=== PATIENT | male | born 1945 | race Caucasian/White ===

== ENCOUNTER 2019-02-23 06:10 | Inpatient (IN) | payer OTHER ==
[~2019-02-23] VITALS: Ht 170.2 cm; Wt 78.0 kg
[~2019-02-23 06:10] MED LIST: CRESTOR20 MG PO; REQUIP 1 MG TABL1 M1 PO; [UNRECOGNIZED DRUG - OTHER] PO
[2019-02-23 06:18] VITALS: BP 147/66
[2019-02-23 06:34] LABS: ABSOLUTE BASOPHILS 0.1 thou/uL (0.0-0.2); ABSOLUTE LYMPHOCYTES 1.4 thou/uL (0.8-5.3); ABSOLUTE MONOCYTES 0.8 thou/uL (0.0-1.2); ABSOLUTE NEUTROPHILS 6.2 thou/uL (1.6-8.1); BASOPHILS 0.7 %; EOSINOPHILS 0.4 %; LYMPHOCYTES 16.6 %; MCH 32.2 pg (26.0-34.0); MCHC 34.2 g/dL (28.0-37.0); MCV 94.3 fL (80.0-100.0); MONOCYTES 9.1 %; MPV 6.9 fl. (7.2-11.1); NUCLEATED RBCS 0 /100WBC; PLATELET COUNT* 302 thou/uL (150-400); POLYS 73.2 %; RBC 4.67 mil/uL (4.50-6.00); RDW-CV 12.4 % (10.5-14.5); WBC 8.5 thou/uL (4.0-11.0)
[2019-02-23 06:41] LABS: CALCIUM 9.6 mg/dL (8.5-10.1); CREATININE 1.2 mg/dL (0.6-1.3); POTASSIUM 4.9 mmol/L (3.5-5.1)
[2019-02-23 06:52] LABS: ALBUMIN 3.5 g/dL (3.4-5.0); TOTAL BILIRUBIN 0.9 mg/dL (<0.1-1.0); TOTAL PROTEIN 8.3 g/dL (6.4-8.2)
[2019-02-23 07:00] LABS: INFLUENZA A ANTIGEN Negative (Negative); INFLUENZA B ANTIGEN Negative (Negative)
[2019-02-23 07:09] LABS: APTT 25.7 Seconds (25.0-31.3); PROTIME 10.7 Seconds (9.20-11.50)
[2019-02-23 11:52] LABS: URINE BILIRUBIN NEGATIVE (Negative); URINE BLOOD 1+ (Negative); URINE CLARITY CLEAR; URINE COLOR YELLOW; URINE GLUCOSE-RANDOM NEGATIVE (Negative); URINE KETONES TRACE (Negative); URINE LEUKOCYTES-REFLEX NEGATIVE (Negative); URINE NITRITE-REFLEX NEGATIVE (Negative); URINE PROTEIN NEGATIVE (Negative); URINE SPECIFIC GRAVITY 1.025 (1.005-1.030); URINE UROBILINOGEN 0.2 E.U./dl (0.2-1.0)
[2019-02-23 12:01] LABS: BACTERIA-REFLEX 1-9 Few /HPF (None Seen); CASTS None Seen /LPF (None Seen); CRYSTALS None Seen /LPF (None Seen); MUCUS 0-3 Light strn/LPF (None Seen); SQUAMOUS 0-3 Few /LPF (0-3); URINE RBC 3-10 Few /HPF (0-2); URINE WBC-REFLEX 0-5 Rare /HPF (0-5)
[2019-02-23 13:24] VITALS: BP 121/61
--- NOTE | 2019-02-23 14:22 | EKG ---
[place] [address] ELECTROCARDIOGRAM REPORT Name: RYAN RÍOS Room: [place] [address] ADM IN M.R.#: [id number] Admission: 02/23/19 Attend Phys: Lawrence Whitney Discharge: Date of : 41 Report #: [id number] THIS REPORT FOR: //name// [facility] ED Test Date: 2019-02-23 Test Time: 06:32:29 Pat Name: RYAN RÍOS Department: Room: [facility] Gender: M Prover: [place] : 1945 Requested By: Iain Wynn Order Number: [id number] MD: Gilberto Bond Measurements Intervals [place] Rate: 81 P: 81 [place]: 173 QRS: -86 QRSD: 90 T: 39 QT: 358 QTc: 416 Interpretive Statements Sinus rhythm Left anterior fascicular block Compared to ECG 01/11/2010 17:47:19 Left anterior fascicular block now present Sinus arrhythmia no longer present Electronically Signed On 02-23-2019 14:22:06 SOLAR DEVELOPMENT ENGINEER by Gilberto Bond [email or web address] <ELECTRONICALLY SIGNED> By: Gilberto Bond MD, FACC 02/23/19 1422 0632 0632 Gilberto Bond MD, [facility] /EPI
[2019-02-23 17:29] VITALS: BP 119/52
[2019-02-23 18:43] VITALS: BP 107/53
--- NOTE | 2019-02-23 19:59 | NUR ---
ASSUMMED CARE OF PT UPON ADMISSION TO UNIT AT 1750, PT ALERT AND ORIENTED, PT DENIES PAIN, SALINE LOCK IN LEFT HAND, VSS, PT O2 SAT 90%, PLACED ON 2L PER NC, IV FLUIDS STARTED AND IV FOUND TO BE LEAKING, REMOVED. TAKING FOOD AND FLUIDS WELL, HOURLY ROUNDING COMPLETED, ASSESSMENT COMPLETE, WILL CONTINUE TO [id number].
[2019-02-23 22:10] VITALS: BP 113/48
--- NOTE | 2019-02-24 06:39 | NUR ---
ASSUMED PT CARE AT 1930. PT ALERT AND ORIENTED X4, POLITE AND COOPERATIVE WITH CARES. PT DENIES PAIN. PIV INFUSING TO RIGHT HAND. PT ON 2L 02 PER NC. MEDICATIONS GIVEN PER APR. USES CALL LIGHT APPROPRIATELY. HOURLY ROUNDING IN PROGRESS, WILL CONTINUE TO MONITOR.
[2019-02-24 08:00] VITALS: BP 138/53
[2019-02-24] MEDS ORDERED: LEVAQUIN 500 M500 M3 PO (15:06)
[2019-02-24] MEDS ORDERED: PREDNISONE 10 M10 MG PO (15:07)
[2019-02-24] MEDS ORDERED: PROAIR HFA8.5 GM INH (15:08)
[2019-02-24 16:06] VITALS: BP 138/53
[2019-02-24 16:18] VITALS: BP 138/53
--- NOTE | 2019-02-24 16:38 | NUR ---
AM ASSESSMENT AND VITAL SIGNS COMPLETED DOCUMENTED. PT FEELS HE IS READY TO GO HOME. DISCHARGE ORDERS RECEIVED. DISCHARGE INSTRUCTIONS AND PRESCRIPTIONS PROVIDED TO PT AND HIS SPOUSE. PT AND BELONGINGS TRANSPORTED TO EXIT, DISCHARGED HOME IN STABLE CONDTITION.
== END 2019-02-24 16:40 | disposition home or self-care (01) | DRG 189 ==
LOC: M.ERS 06:10 → M.TBA-ER 08:52 → M.3W 17:37
PROVIDERS: Family Medicine; ADMIT Internal Medicine
DX: J96.01 Acute respiratory failure with hypoxia (principal); J44.1 Chronic obstructive pulmonary disease with (acute) exacerbation; E27.40 Unspecified adrenocortical insufficiency; J06.9 Acute upper respiratory infection, unspecified; G25.81 Restless legs syndrome; Z86.73 Personal history of transient ischemic attack (TIA), and cerebral infarction without residual deficits; Z79.899 Other long term (current) drug therapy; Z88.4 Allergy status to anesthetic agent; Z88.0 Allergy status to penicillin; Z87.891 Personal history of nicotine dependence; Z90.49 Acquired absence of other specified parts of digestive tract; Z28.21 Immunization not carried out because of patient refusal

== ENCOUNTER 2019-04-23 16:49 | Observation (INO) | payer OTHER ==
[~2019-04-23] VITALS: Ht 170.2 cm; Wt 81.6 kg
[~2019-04-23 16:49] MED LIST changes: +LEVAQUIN 500 M500 M3 PO; +PREDNISONE 10 M10 MG PO; +PROAIR HFA8.5 GM INH
[2019-04-23 16:51] VITALS: BP 145/78
[2019-04-23 17:20] LABS: ABSOLUTE EOSINOPHILS 0.1 thou/uL (0.0-0.7); ABSOLUTE LYMPHOCYTES 2.3 thou/uL (0.8-5.3); ABSOLUTE MONOCYTES 0.9 thou/uL (0.0-1.2); ABSOLUTE NEUTROPHILS 4.8 thou/uL (1.6-8.1); BASOPHILS 0.6 %; EOSINOPHILS 0.7 %; HEMATOCRIT 41.1 % (42.0-52.0); HEMOGLOBIN 13.8 gm/dL (14.0-18.0); LYMPHOCYTES 28.6 %; MCH 31.9 pg (26.0-34.0); MCHC 33.6 g/dL (28.0-37.0); MCV 94.7 fL (80.0-100.0); NUCLEATED RBCS 0 /100WBC; PLATELET COUNT* 304 thou/uL (150-400); POLYS 59.1 %; RBC 4.34 mil/uL (4.50-6.00); RDW-CV 13.6 % (10.5-14.5); WBC 8.1 thou/uL (4.0-11.0)
[2019-04-23 17:28] LABS: CREATININE 0.9 mg/dL (0.6-1.3); POTASSIUM 4.2 mmol/L (3.5-5.1)
[2019-04-23 17:34] LABS: INFLUENZA A ANTIGEN Negative (Negative); INFLUENZA B ANTIGEN Negative (Negative)
[2019-04-23 17:39] LABS: ALBUMIN 3.6 g/dL (3.4-5.0); TOTAL BILIRUBIN 0.6 mg/dL (<0.1-1.0); TOTAL PROTEIN 7.7 g/dL (6.4-8.2)
[2019-04-23 18:26] VITALS: BP 140/64
[2019-04-23 21:20] VITALS: BP 136/64
[2019-04-24] MEDS ORDERED: ASMANEX220 MC2 INH (08:39)
[2019-04-24] MEDS ORDERED: OLODATEROL INH (08:40)
[2019-04-24] MEDS ORDERED: AZITHROMYCIN500 MG PO (08:43)
[2019-04-24] MEDS ORDERED: PREDNISONE 10 M10 MG PO (08:43)
[2019-04-24] MEDS ORDERED: MUCINEX600 MG PO (08:43)
[2019-04-24 09:10] VITALS: BP 123/56
[2019-04-24 11:50] VITALS: BP 123/56
[2019-04-24 12:54] LABS: BE -3.8 mmol/L (-2 to +3); PO2 84.4 mmHg (75.0-100.0); pH 7.302 (7.340-7.450)
--- NOTE | 2019-04-24 12:56 | EKG ---
[place] [address] ELECTROCARDIOGRAM REPORT Name: RYAN RÍOS Room: [address]R.#: [id number] Admission: 04/23/19 Attend Phys: Maksim Gimenez, Discharge: Date of : 41 Date of Service: 04/23/19 1706 Report #: [id number] THIS REPORT FOR: //name// [facility] ED Test Date: 2019-04-23 Test Time: 17:06:06 Pat Name: RYAN RÍOS Department: Room: [facility] Gender: M Delphi Developer: [place] : 1945 Requested By: Bernardino Root Order Number: [id number] MD: Gilberto Bond Measurements Intervals [place] Rate: 71 P: 72 [place]: 175 QRS: -64 QRSD: 100 T: 45 QT: 420 QTc: 457 Interpretive Statements Sinus rhythm left anterior fasicular block Compared to ECG 02/23/2019 06:32:29 incomplete RIGHT BUNDLE BRANCH BLOCK no longer seen Electronically Signed On 04-24-2019 12:55:09 PRODUCTION UNDERWRITER by Gilberto Bond [email or web address] <ELECTRONICALLY SIGNED> By: Gilberto Bond MD, FAC 04/24/19 1255 1706 1706 Gilberto Bond MD, [facility] /EPI
== END 2019-04-24 12:15 | disposition home or self-care (01) ==
LOC: M.ERS 16:49 → M.ORTHSURG 17:48 → M.TBA-ER 17:48 → M.ORTHSURG 18:33
PROVIDERS: Emergency Medicine; ADMIT Internal Medicine
DX: J96.01 Acute respiratory failure with hypoxia (principal); J44.1 Chronic obstructive pulmonary disease with (acute) exacerbation; E27.40 Unspecified adrenocortical insufficiency; G47.00 Insomnia, unspecified; J40 Bronchitis, not specified as acute or chronic

== ENCOUNTER 2019-05-04 11:54 | Emergency (ER) | payer OTHER ==
[~2019-05-04] VITALS: Ht 170.2 cm; Wt 81.7 kg
[~2019-05-04 11:54] MED LIST changes: +ASMANEX220 MC2 INH; +AZITHROMYCIN500 MG PO; +MUCINEX600 MG PO; +OLODATEROL INH
[2019-05-04 12:17] LABS: ABSOLUTE BASOPHILS 0.1 thou/uL (0.0-0.2); ABSOLUTE EOSINOPHILS 0.1 thou/uL (0.0-0.7); ABSOLUTE LYMPHOCYTES 2.5 thou/uL (0.8-5.3); ABSOLUTE MONOCYTES 0.6 thou/uL (0.0-1.2); ABSOLUTE NEUTROPHILS 6.5 thou/uL (1.6-8.1); BASOPHILS 0.9 %; EOSINOPHILS 1.2 %; HEMATOCRIT 39.6 % (42.0-52.0); HEMOGLOBIN 13.6 gm/dL (14.0-18.0); LYMPHOCYTES 25.2 %; MCH 32.5 pg (26.0-34.0); MCHC 34.3 g/dL (28.0-37.0); MCV 94.6 fL (80.0-100.0); MONOCYTES 6.2 %; MPV 6.7 fl. (7.2-11.1); NUCLEATED RBCS 0 /100WBC; PLATELET COUNT* 339 thou/uL (150-400); POLYS 66.5 %; RBC 4.18 mil/uL (4.50-6.00); RDW-CV 13.8 % (10.5-14.5); WBC 9.8 thou/uL (4.0-11.0)
[2019-05-04 12:26] LABS: CALCIUM 8.6 mg/dL (8.5-10.1); CREATININE 0.8 mg/dL (0.6-1.3); POTASSIUM 3.5 mmol/L (3.5-5.1)
[2019-05-04 12:28] LABS: PROTIME 10.2 Seconds (9.20-11.50)
[2019-05-04 12:37] LABS: ALBUMIN 3.4 g/dL (3.4-5.0); MAGNESIUM 1.8 mg/dL (1.8-2.4); TOTAL BILIRUBIN 0.6 mg/dL (<0.1-1.0); TOTAL PROTEIN 7.1 g/dL (6.4-8.2)
[2019-05-04] MEDS ORDERED: PREDNISONE 20 M20 M1 PO (13:24)
[2019-05-04 13:41] VITALS: BP 161/60
--- NOTE | 2019-05-04 16:32 | EKG ---
[place] [address] ELECTROCARDIOGRAM REPORT Name: KHUSHBURYAN Room: [facility]#: [id number] Admission: 05/04/19 Attend Phys: Discharge: 05/04/19 Date of : 41 Date of Service: 05/04/19 1157 Report #: [id number] THIS REPORT FOR: //name// [facility] ED Test Date: 2019-05-04 Test Time: 11:57:07 Pat Name: RYAN RÍOS Department: Room: Gender: Corporate Strategy Associate: [place] : 1945 Requested By: Iain Wynn Order Number: [id number] MD: Ryan Santiago Measurements Intervals [place] Rate: 76 P: 66 MD: 163 QRS: -80 QRSD: 102 T: 34 QT: 383 QTc: 431 Interpretive Statements Sinus rhythm Left anterior fascicular block Low voltage, extremity leads Borderline ST depression, anterolateral leads Compared to ECG 04/23/2019 17:06:06 ST (T wave) deviation now present Electronically Signed On 05-04-2019 16:31:18 CDT by Ryan Santiago [email or web address] <ELECTRONICALLY SIGNED> By: Ryan Santiago MD, [facility] 05/04/19 1631 1157 1157 Ryan Santiago MD, [facility] /EPI
== END 2019-05-04 13:41 | disposition home or self-care (01) ==
LOC: M.ERS 11:54
PROVIDERS: Family Medicine
DX: J44.1 Chronic obstructive pulmonary disease with (acute) exacerbation (principal); Z88.0 Allergy status to penicillin; Z88.8 Allergy status to other drugs, medicaments and biological substances; Z86.73 Personal history of transient ischemic attack (TIA), and cerebral infarction without residual deficits